=== PATIENT | male | born 1990 | race Caucasian/White ===

== ENCOUNTER 2020-12-14 16:32 | Emergency (ER) | payer BC ==
[~2020-12-14] VITALS: Ht 177.8 cm; Wt 90.0 kg
[~2020-12-14 16:32] MED LIST: CEPHALEXIN500 M1 OR; LISINOPRIL10 MG PO; ROCEPHIN 2250 MG/VIA IM; TYLENOL325 MG; ZOFRAN ODT8 MG OR
[2020-12-14] MEDS ORDERED: DOXYCYCLINE100 MG PO (19:07)
[2020-12-14 19:33] VITALS: BP 143/93
== END 2020-12-14 19:34 | disposition home or self-care (01) | DRG 607 ==
LOC: ED 16:32
DX: S10.96XA Insect bite of unspecified part of neck, initial encounter (principal); W57.XXXA Bitten or stung by nonvenomous insect and other nonvenomous arthropods, initial encounter; Z20.822 Contact with and (suspected) exposure to COVID-19